=== PATIENT | male | born 1940 | race Caucasian/White ===

== ENCOUNTER 2017-01-20 15:28 | Inpatient (IN) | payer OTHER, MEDICARE ==
[2017-01-20] VITALS (8 sets, daily range): BP systolic 130–168; BP diastolic 61–97
[~2017-01-20] VITALS: Ht 180.3 cm; Wt 96.8 kg
--- NOTE | ~2017-01-20 | CON ---
[place], [place] REPORT OF CONSULTATION NAME: CHRISTY SOSA UNIT #: [id number] ROOM: 416 DOCTOR: SCOTT VELEZ MD BIRTHDATE: [birth year] DOS: 01/21/2017 REASON FOR CONSULTATION: Atrial fibrillation. HISTORY OF PRESENT ILLNESS: The patient is a 76-year-old patient with history of benign prostatic hypertrophy and overweight, was sent to the Emergency Room from the [facility] due to his abdominal distention but in the Emergency Room, he was found to be in atrial fibrillation and was recommended admission to the hospital and Cardiology was consulted for further recommendation for his new-onset atrial fibrillation. He denies any chest pain or shortness of breath. No dizziness, no palpitations, no orthopnea, no PND, no nausea, vomiting, diarrhea, no abdominal pain. No genitourinary symptoms. No musculoskeletal symptoms. No neurological symptoms. No hematuria or dysuria. He noted to have elevated lipase and amylase. This is the first time he knew that he had a heart arrhythmia. No history of hypertension, diabetes, or coronary artery disease. He is physically active at home. REVIEW OF SYSTEMS: Review of the 10 systems negative except as mentioned above. PAST MEDICAL HISTORY: 1. Benign prostatic hypertrophy. 2. Overweight. PAST SURGICAL HISTORY: Noncontributory. ALLERGIES: The patient is allergic to CIPROFLOXACIN. HOME MEDICATIONS: Reviewed. FAMILY HISTORY: Mother has diabetes and . Father ; father had a history of alcohol use. HOME MEDICATIONS: Reviewed. PHYSICAL EXAMINATION: VITAL SIGNS: Blood pressure 142/55, pulse 72, respiration was rate 16. GENERAL: Alert, comfortable, in no acute distress. HEENT: Pupils are round and equal. No jaundice. The patient is hard of hearing, especially in the right ear. Tongue was moist and pharynx was clear. NECK: Supple, no distended neck veins, no carotid bruit. Thyroid not palpable. CHEST: Symmetrical, nontender. LUNGS: Clear to auscultation bilaterally. HEART: Irregularly irregular. No S3. Grade 1/6 systolic murmur at the left sternal border. No palpable thrills. ABDOMEN: Benign, nontender. I believe he had a mild hepatomegaly, obese, no pulsatile masses. EXTREMITIES: Showed no edema. Distal pulses are palpable. SKIN: Warm and dry. No cyanosis, no clubbing. NEUROLOGIC: The patient is alert, oriented. No focal neurologic deficit. RECTAL: Deferred. [place], [place] REPORT OF CONSULTATION NAME: CHRISTY SOSA UNIT #: [id number] ROOM: [facility] DOCTOR: AGUSTIN SMITH,BOLIVAREric BIRTHDATE: [birth year] GENITOURINARY: Deferred. MUSCULOSKELETAL: Showed no joint tenderness or swelling. PSYCHIATRIC: The patient is alert, oriented with a good mood and affect. REVIEW OF THE DIAGNOSTIC TESTS AND IMAGING STUDIES: EKGs and labs reviewed. EKG showed atrial fibrillation with nonspecific ST changes. CBC, chemistry reviewed. CT abdomen showed some mild constipation and prostatic hypertrophy. Lipase and amylase are elevated. IMPRESSION: 1. Atrial fibrillation, new onset, CHADS2-VASc sore is 2. 2. Benign prostatic hypertrophy. 3. Elevated lipase and amylase. 4. Overweight. 5. Labile hypertension. RECOMMENDATIONS: 1. 2D echo reviewed, showed normal LV function, no intracardiac thrombus. 2. Check TSH to rule out hyperthyroidism. 3. Risks and benefits of the anticoagulation for the atrial fibrillation was discussed. Given the options of Coumadin versus Eliquis. He elected to take the Eliquis at this time and he and his who is at bedside, they have understood the risk of the bleeding from the Eliquis. If the Eliquis is not covered by the [facility], then it can be switch to Coumadin. 4. Start low dose metoprolol 25 mg once daily for his rate control. 5. I would recommend a stress test to rule out ischemia due to his new atrial fibrillation and the patient is agreeable. Since he had coffee this morning, I will do the exercise nuclear stress test today. 6. If the stress test is unremarkable, he can be discharged home from the cardiac standpoint on metoprolol and Eliquis and he will follow up with his [facility] physician or nurse practitioner and then either he will follow up with airport skilled maintenance supervisor in the [place] [facility] or he can contact [facility] office or [facility] at [facility] [place] for the followup in a couple of weeks. Thank you, Dr. Leung, for asking us to evaluate this gentleman and we will follow the case along with you. SCOTT VELEZ MD CM:CONSTR:REPORT OF CONSULTATION 1155 01/22/17 0134 interface
--- NOTE | ~2017-01-20 | ST ---
[place], [place] EXERCISE STRESS TEST REPORT NAME: CHRISTY SOSA UNIT #: [id number] ROOM: 416 DOCTOR: AGUSTIN SMITH,SCOTT BIRTHDATE: [birth year] DOS: 01/21/2017 PROCEDURE: Lexiscan stress test REFERRING PHYSICIAN: Octavio Leung DO REASON FOR TEST: The patient with atrial fibrillation, abnormal EKG. PHYSICAL EXAMINATION NECK: Supple. LUNGS: Clear anteriorly. HEART: Irregular. PROTOCOL: Pierre protocol. Total stress time was 3 minutes. Maximum heart rate is 144, which is 99% of target heart rate. Peak blood pressure 158/92. SYMPTOMS: The patient is chest pain-free. TOTAL METS: 4.7 mets. EKG: Resting EKG, atrial fibrillation. Stress EKG showed atrial fibrillation, no ischemia. CONCLUSION: Clinically, the patient is chest pain-free. EKG, underlying atrial fibrillation with no ischemia. POST-STRESS COMPLICATIONS: None. SCOTT VELEZ MD CM:STRESS:EXERCISE STRESS TEST REPORT [id number] SCOTT VELEZ MD
[2017-01-20] MEDS ORDERED: ASPIRIN CHEWABL81 MG PO (15:47)
[2017-01-20] MEDS ORDERED: VITAMIN D31000 UNI1 PO (15:47)
[2017-01-20 16:19] LABS: BASO % 0.5 % (0.0-1.0); EOS # 0.2 10*3/uL (0.0-0.4); EOS % 2.1 % (1.0-4.0); HEMATOCRIT 44.8 % (42.0-52.0); HEMOGLOBIN 15.2 g/dl (14.0-18.0); LYMPH # 1.8 10*3/uL (1.3-4.4); LYMPH % 20.9 % (27.0-41.0); MEAN CELL VOLUME 93.9 fl (80.0-94.0); MEAN CORPUSCULAR HGB 31.9 pg (27.0-31.0); MEAN CORPUSCULAR HGB CONC 33.9 g/dl (33.0-37.0); MEAN PLATELET VOLUME 9.7 fl (9.6-12.3); MONO # 0.9 10*3/uL (0.1-1.0); MONO % 10.8 % (3.0-9.0); NEUT # 5.7 10*3/uL (2.3-7.9); NEUT % 65.2 % (47.0-73.0); PLATELET COUNT AUTOMATED 246 10*3/uL (130-400); RED BLOOD COUNT 4.77 10*6/uL (4.50-5.90); RED CELL DISTRI WIDTH 12.5 % (0-14.5); WHITE BLOOD COUNT 8.7 10*3/uL (4.8-10.8)
[2017-01-20 16:28] LABS: BILIRUBIN NEGATIVE (NEGATIVE); BLOOD TRACE-LYSED (NEGATIVE); CLARITY CLEAR (CLEAR); COLOR YELLOW (YELLOW); GLUCOSE NEGATIVE (NEGATIVE); KETONE NEGATIVE (NEGATIVE); LEUKO ESTERASE NEGATIVE (NEGATIVE); NITRITE NEGATIVE (NEGATIVE); PH 5.5 (5.0-9.0); SPECIFIC GRAVITY >= 1.030 (1.005-1.030); UROBILINOGEN 0.2 E.U./dl (0.2-1.0)
[2017-01-20 16:34] LABS: ALBUMIN 3.6 gm/dl (3.1-4.5); ALKALINE PHOSPHATASE 75 U/L (45-117); BUN 20 mg/dl (7-24); CHLORIDE 110 mmol/L (98-107); CREATININE 0.97 mg/dL (0.70-1.30); LIPASE 1444 U/L (73-393); POTASSIUM 4.6 mmol/L (3.5-5.1); SGOT/AST 17 IU/L (3-35); SGPT/ALT 25 U/L (12-78); SODIUM 141 mmol/L (136-145); TOTAL PROTEIN 7.2 gm/dL (6.4-8.2)
[2017-01-20 16:42] LABS: BACTERIA 1+; MUCOUS TRACE; RBC 0-2 rbc/hpf (0-2)
--- NOTE | 2017-01-20 21:40 | NUR ---
A 76, admitted to , under the services of SHAE Bennett DO with a diagnosis of AFIB WITH RVR. Chief complaint is WAS IN [facility] FOR CHECKUP FOR ABD AND BACK PAIN . Patient arrived via stretcher from ER. Monitor applied. Initial assessment completed. Vital signs taken and recorded. SAHE BENNETT DO notified of admission to the unit. Orders received. See assessment for past medical history, medications and allergies. Patient and/or family oriented to unit. [facility] visitation policy reviewed. Clothing/patient valuable form completed. JAYLYN CARTER
[2017-01-20] MEDS ORDERED: FINASTERIDE5 M1 PO (22:03)
[2017-01-20] MEDS ORDERED: FLOMAX0.4 MG PO (22:04)
[2017-01-21] VITALS: BP 121/77
--- NOTE | 2017-01-21 00:42 | NUR ---
[facility] C[facility] NOTIFIED OF CONSULT PER PRN ORDER. MESSAGE LEFT WITH ANSWERING SERVICE.
[2017-01-21 05:53] LABS: ALBUMIN 3.3 gm/dl (3.1-4.5); BUN 17 mg/dl (7-24); CHLORIDE 108 mmol/L (98-107); SGOT/AST 17 IU/L (3-35); SGPT/ALT 25 U/L (12-78); SODIUM 139 mmol/L (136-145); TOTAL PROTEIN 6.6 gm/dL (6.4-8.2)
[2017-01-21 05:54] LABS: ALKALINE PHOSPHATASE 71 U/L (45-117)
[2017-01-21 05:56] LABS: POTASSIUM 3.6 mmol/L (3.5-5.1)
[2017-01-21 06:11] LABS: BASO % 0.5 % (0.0-1.0); EOS # 0.3 10*3/uL (0.0-0.4); EOS % 3.1 % (1.0-4.0); HEMATOCRIT 43.6 % (42.0-52.0); HEMOGLOBIN 14.8 g/dl (14.0-18.0); LYMPH # 2.2 10*3/uL (1.3-4.4); LYMPH % 26.9 % (27.0-41.0); MEAN CELL VOLUME 94.6 fl (80.0-94.0); MEAN CORPUSCULAR HGB 32.1 pg (27.0-31.0); MEAN CORPUSCULAR HGB CONC 33.9 g/dl (33.0-37.0); MEAN PLATELET VOLUME 10.2 fl (9.6-12.3); MONO # 0.9 10*3/uL (0.1-1.0); MONO % 10.8 % (3.0-9.0); NEUT # 4.7 10*3/uL (2.3-7.9); NEUT % 58.5 % (47.0-73.0); PLATELET COUNT AUTOMATED 251 10*3/uL (130-400); RED BLOOD COUNT 4.61 10*6/uL (4.50-5.90); RED CELL DISTRI WIDTH 12.7 % (0-14.5); WHITE BLOOD COUNT 8.1 10*3/uL (4.8-10.8)
[2017-01-21 08:00] VITALS: BP 142/85
--- NOTE | 2017-01-21 08:00 | NUR ---
HOME MEDICATIONS REVIEWED
[2017-01-21 12:00] VITALS: BP 120/72
--- NOTE | 2017-01-21 14:00 | NUR ---
[employer]ist in to talk to patient. Patient states lives at with . There are few steps in the home. Physician: edgar menjivar [facility]acy: [facility] Home health services: none Patient's level of ADLs: INDEPENDENT Patient has working utilities: [employer]working DME: Follow-up physician's appointment after d/c: will be made by hospitalist nurse director upon discharge Does patient want to access PORTAL?: no Discharge plan discussed with patient, patient lives at home with , gets around fine, patient states he will be going back home and denies any home needs. KARLEE PARISH
--- NOTE | 2017-01-21 14:45 | NUR ---
INFORMED CONSENT OBTAINED FOR EXERCISE CARDIOLITE STRESS TEST WITH DR. VELEZ. RESTING EKG ATRIAL FIB WITH A RESTING HR OF 104 WITH BP OF 128/62 AND HR OF 131 WITH BP OF 132/78 IN STANDING POSITION. PT COMPLETED 3:00 OF A SVETLANA PROTOCOL AND TEST TERMINATED BECAUSE OF PHYSICIAN DISCRETION. HAD NO CHEST PAIN OR ANY ST CHANGS. REACHED A PEAK HR OF 144 WHICH IS 158/80 AND BP OF 158/80. EXERCISE TOLERANCE LIMITED WITH ATRIAL FIB. LAST RECOVERY HR OF 117 WITH BP OF 122/76. TO NUCLEAR MEDICINE IN STABLE CONDITION FOR SCANNING.
[2017-01-21 16:00] VITALS: BP 116/72
--- NOTE | 2017-01-21 16:06 | NUR ---
PATIENT BACK IN ROOM FROM STRESS TEST AND ULTRASOUND.
--- NOTE | 2017-01-21 16:52 | NUR ---
PATIENT AWAITING RESULTS FROM STRESS, EAGER TO GO HOME. TOLD PATIENT I WOULD KEEP HIM UPDATED WITH ANY NEWS.
--- NOTE | 2017-01-21 17:33 | NUR ---
24 HR chart check completed.
[2017-01-21] MEDS ORDERED: ELIQUIS5 M1 PO (18:04)
[2017-01-21] MEDS ORDERED: METOPROLOL SUCC25 M2 PO (18:04)
--- NOTE | 2017-01-21 18:40 | NUR ---
PATIENT LEFT FLOOR FOR DISCHARGE. PAPERWORK SIGNED AND ACKNOWLEDGED.
== END 2017-01-21 18:40 | disposition home or self-care (01) | DRG 309 ==
LOC: ED 15:28 → EDHOLD 20:24 → 4E 20:24
PROVIDERS: Family Medicine; Physician Assistant; ADMIT Internal Medicine
PROC: 4A02XM4 Measurement of Cardiac Total Activity, External Approach (ICD-10-PCS; principal; 2017-01-21)
DX: I48.91 Unspecified atrial fibrillation (principal); E44.0 Moderate protein-calorie malnutrition; E87.8 Other disorders of electrolyte and fluid balance, not elsewhere classified; N40.0 Benign prostatic hyperplasia without lower urinary tract symptoms; R74.8 Abnormal levels of other serum enzymes; I10 Essential (primary) hypertension; R73.9 Hyperglycemia, unspecified; K43.9 Ventral hernia without obstruction or gangrene; E66.3 Overweight; Z68.29 Body mass index [BMI] 29.0-29.9, adult; Z87.891 Personal history of nicotine dependence; Z88.1 Allergy status to other antibiotic agents; Z83.3 Family history of diabetes mellitus; Z81.1 Family history of alcohol abuse and dependence

== ENCOUNTER → 2020-11-06 | Outpatient (CLI) | payer OTHER ==
[~2020-11-06] MED LIST: ASPIRIN CHEWABL81 MG PO; ELIQUIS5 M1 PO; FINASTERIDE5 M1 PO; FLOMAX0.4 MG PO; METOPROLOL SUCC25 M2 PO; VITAMIN D31000 UNI1 PO
== END | disposition home or self-care (01) ==
LOC: US 16:00
PROVIDERS: ATTEND Nurse Practitioner Family
DX: I71.4 Abdominal aortic aneurysm, without rupture (principal)

== ENCOUNTER → 2021-11-26 | Outpatient (CLI) | payer OTHER | END | disposition home or self-care (01) | LOC: US 10:42 | PROVIDERS: ATTEND Nurse Practitioner Family | DX: I71.4 Abdominal aortic aneurysm, without rupture (principal); I10 Essential (primary) hypertension ==